=== PATIENT | male | born 1995 | race Caucasian/White ===

== ENCOUNTER → 2023-11-04 | Outpatient (REF) | payer OTHER ==
[2023-11-04 16:38] LABS: HEMATOCRIT 51.9 % (42.0-52.0); HEMOGLOBIN 17.7 g/dl (13.5-17.5); MEAN CORPUSCULAR HEMOGLOBIN 28.9 pg (27.0-33.0); MEAN CORPUSCULAR HGB CONC 34.1 g/dl (32.0-36.5); MEAN CORPUSCULAR VOLUME 84.7 fl (80.0-96.0); PLATELET COUNT, AUTOMATED 179 10^3/uL (150-450); RED BLOOD COUNT 6.13 10^6/uL (4.30-6.10)
[2023-11-04 16:54] LABS: ALKALINE PHOSPHATASE 77 U/L (46-116); ALT/SGPT 73 U/L (7.0-40); AST/SGOT 27 U/L (<34); BILIRUBIN,TOTAL 0.5 MG/DL (0.3-1.2); BLOOD UREA NITROGEN 13 MG/DL (9-23); CALCIUM LEVEL 9.2 MG/DL (8.5-10.1); CARBON DIOXIDE LEVEL 31 MMOL/L (20-31); CHLORIDE LEVEL 105 MMOL/L (98-107); CREATININE FOR GFR 0.95 MG/DL (0.70-1.30); GLOMERULAR FILTRATION RATE > 60.0 (>60); GLUCOSE, FASTING 88 MG/DL (60-100); POTASSIUM SERUM 4.7 MMOL/L (3.5-5.1); SODIUM LEVEL 140 MMOL/L (136-145); TOTAL PROTEIN 6.9 G/DL (5.7-8.2)
[2023-11-04 16:58] LABS: THYROID STIMULATING HORMONE 1.728 uIU/ML (0.55-4.78)
[2023-11-04 17:18] LABS: HEMOGLOBIN A1c 5.3 % (4.0-6.0)
== END ==
LOC: M SFHCADAM 13:52
PROVIDERS: ATTEND Family Medicine
DX: E66.01 Morbid (severe) obesity due to excess calories (principal); F43.21 Adjustment disorder with depressed mood

== ENCOUNTER → 2024-04-12 | Outpatient (CLI) | payer OTHER | LOC: M SLEEP HO 11:12 | PROVIDERS: ATTEND Physician Assistant | DX: G47.33 Obstructive sleep apnea (adult) (pediatric) (principal) ==

== ENCOUNTER → 2025-06-10 | Outpatient (CLI) | payer OTHER | LOC: M SLEEP 20:00 | PROVIDERS: ATTEND Physician Assistant | DX: G47.33 Obstructive sleep apnea (adult) (pediatric) (principal) ==

== ENCOUNTER → 2025-06-20 | Outpatient (REF) | payer MEDICAID, OTHER ==
[2025-06-20 15:18] LABS: PLATELET COUNT, AUTOMATED 166 10^3/uL (150-450)
[2025-06-20 15:21] LABS: ALT/SGPT 140 U/L (7.0-40); AST/SGOT 61 U/L (<34); CALCIUM LEVEL 9.0 MG/DL (8.5-10.1); CARBON DIOXIDE LEVEL 29 MMOL/L (20-31); CHLORIDE LEVEL 105 MMOL/L (98-107); CHOLESTEROL LEVEL 228 MG/DL (<200); CHOLESTEROL RISK RATIO 6.21 (<5); CREATININE FOR GFR 0.92 MG/DL (0.70-1.30); GLOMERULAR FILTRATION RATE > 90.0 (>60); LDL CHOLESTEROL 155.3 MG/DL (<100); NON-HDL-C 191.3 MG/DL; POTASSIUM SERUM 4.0 MMOL/L (3.5-5.1); SODIUM LEVEL 142 MMOL/L (136-145); TRIGLYCERIDES LEVEL 180 MG/DL (<150)
[2025-06-20 15:22] LABS: FREE T4 1.37 NG/DL (0.89-1.76)
[2025-06-20 17:01] LABS: ESTIMATED AVERAGE GLUCOSE 105.0 MG/DL (60-110)
== END ==
LOC: M SFHCADAM 10:20
PROVIDERS: ATTEND Family Medicine
DX: G47.33 Obstructive sleep apnea (adult) (pediatric) (principal); D75.1 Secondary polycythemia; R74.8 Abnormal levels of other serum enzymes; F43.21 Adjustment disorder with depressed mood; E66.01 Morbid (severe) obesity due to excess calories; Z83.438 Family history of other disorder of lipoprotein metabolism and other lipidemia